=== PATIENT | female | born 1965 | race Caucasian/White ===

== ENCOUNTER 2016-12-14 15:43 | Emergency (ER) | payer OTHER ==
[~2016-12-14] VITALS: Ht 162.6 cm; Wt 113.6 kg
[~2016-12-14 15:43] MED LIST: ADVIL PM 38 MG-1 TAB PO; ADVIL200 MG PO; AMITRIPTYLINE H25 M1 PO; CLEOCIN HCL300 MG PO; FIORICET 325 MG1 TA1 PO; HUMULIN R 10100 U/ML SC; INSHUMULINR SC; INSULIN 70/3100 U/ML SC; LORTAB 5/500 501 TAB PO; MOTRIN 600600 MG/TAB PO; NOVLOG SC; SYNTHROID0.05 MG/TA PO; TYLENOL 325MG325 MG PO
[2016-12-14 15:45] VITALS: TEMP 99.1
[2016-12-14 16:54] LABS: BASO # 0.1 (0.0-0.2); BASO % 0.8 % (0.0-2.0); EOS # 0.1 (0.0-0.7); EOS % 1.3 % (0-4.0); GRAN # 6.5 (1.4-6.5); GRAN % 69.6 % (42.2-75.2); HEMATOCRIT 43.4 % (37.0-47.0); HEMOGLOBIN 15.1 g/dl (12.5-16.0); LYMPH # 1.8 (1.2-3.4); LYMPH % 19.8 % (20.0-51.0); MEAN CELL VOLUME 87 fl (80.0-100.0); MEAN CORPUSCULAR HEMOGLOBIN 30 pg (27.0-31.0); MEAN CORPUSCULAR HGB CONC 35 g/dl (33.0-37.0); MEAN PLATELET VOLUME 10.6 fl (7.4-10.4); MONO # 0.7 (0.1-0.6); MONO % 7.9 % (1.7-9.3); PLATELET COUNT 297 K/mm3 (130-400); RED BLOOD COUNT 5.01 M/mm3 (4.10-5.30); REDCELL DISTRIBUTION WIDTH-CV 12.5 % (11.5-14.5); WHITE BLOOD COUNT 9.3 K/mm3 (4.8-10.8)
[2016-12-14 17:02] LABS: ADJUSTED CALCIUM 9.4 mg/dL (8.4-10.2); ALBUMIN 3.8 gm/dL (3.5-5.0); BILIRUBIN,TOTAL 0.7 mg/dL (0.0-1.0); CALCIUM 9.2 mg/dL (8.4-10.2); CREATININE, serum 0.54 mg/dL (0.52-1.25); POTASSIUM 4.1 mmol/L (3.4-5.0); TOTAL PROTEIN 6.8 gm/dL (6.4-8.2)
[2016-12-14] MEDS ORDERED: NORCO 325 MG-51 TAB PO (18:30)
[2016-12-14 18:47] VITALS: BP 130/76; PULSE 82
== END 2016-12-14 18:49 | disposition home or self-care (01) ==
LOC: COL.ER 15:43
PROVIDERS: Family Medicine
DX: S00.93XA Contusion of unspecified part of head, initial encounter (principal); S10.93XA Contusion of unspecified part of neck, initial encounter; S30.1XXA Contusion of abdominal wall, initial encounter; S70.00XA Contusion of unspecified hip, initial encounter; E11.9 Type 2 diabetes mellitus without complications; Z79.4 Long term (current) use of insulin; V49.49XA Driver injured in collision with other motor vehicles in traffic accident, initial encounter
CPT/HCPCS: Q9967

== ENCOUNTER 2017-01-02 09:27 | Emergency (ER) | payer OTHER ==
[~2017-01-02] VITALS: Ht 162.6 cm; Wt 113.6 kg
[~2017-01-02 09:27] MED LIST changes: +NORCO 325 MG-51 TAB PO
[2017-01-02 09:32] VITALS: TEMP 98
[2017-01-02 10:41] LABS: BASO # 0.1 (0.0-0.2); BASO % 0.8 % (0.0-2.0); EOS # 0.2 (0.0-0.7); EOS % 2.6 % (0-4.0); GRAN # 4.1 (1.4-6.5); GRAN % 64.9 % (42.2-75.2); HEMOGLOBIN 14.2 g/dl (12.5-16.0); LYMPH # 1.4 (1.2-3.4); MEAN CELL VOLUME 88 fl (80.0-100.0); MEAN CORPUSCULAR HEMOGLOBIN 30 pg (27.0-31.0); MEAN CORPUSCULAR HGB CONC 35 g/dl (33.0-37.0); MEAN PLATELET VOLUME 9.9 fl (7.4-10.4); MONO # 0.6 (0.1-0.6); MONO % 9.4 % (1.7-9.3); PLATELET COUNT 269 K/mm3 (130-400); RED BLOOD COUNT 4.68 M/mm3 (4.10-5.30); REDCELL DISTRIBUTION WIDTH-CV 13.4 % (11.5-14.5); WHITE BLOOD COUNT 6.3 K/mm3 (4.8-10.8)
[2017-01-02 10:57] LABS: ADJUSTED CALCIUM 9.3 mg/dL (8.4-10.2); ALBUMIN 3.7 gm/dL (3.5-5.0); BILIRUBIN,TOTAL 0.7 mg/dL (0.0-1.0); CALCIUM 9.1 mg/dL (8.4-10.2); CREATININE, serum 0.51 mg/dL (0.52-1.25); TOTAL PROTEIN 6.6 gm/dL (6.4-8.2)
[2017-01-02 12:31] LABS: PH 5 (5-8); SQUAMOUS EPITHELIAL 0-2 /hpf; URINE APPEARANCE Clear; URINE BACTERIA None Seen /hpf; URINE BILIRUBIN Negative (NEGATIVE); URINE BLOOD 3+ (NEGATIVE); URINE COLOR Yellow; URINE GLUCOSE 3+ (NEGATIVE); URINE KETONE Trace (NEGATIVE); URINE RBC >50 /hpf; URINE UROBILINOGEN Negative (NEGATIVE); URINE WBC None Seen /hpf
[2017-01-02 12:56] VITALS: BP 161/77; PULSE 64
== END 2017-01-02 12:45 | disposition home or self-care (01) ==
LOC: COL.ER 09:27
PROVIDERS: Emergency Medicine
DX: R10.9 Unspecified abdominal pain (principal); E11.9 Type 2 diabetes mellitus without complications; I10 Essential (primary) hypertension; K59.00 Constipation, unspecified; E66.9 Obesity, unspecified; Z68.41 Body mass index [BMI] 40.0-44.9, adult
CPT/HCPCS: J1815; J2270; J2405; J7030; Q9967

== ENCOUNTER 2017-04-21 10:33 | Emergency (ER) | payer SELFPAY ==
[~2017-04-21] VITALS: Ht 162.6 cm; Wt 111.4 kg
[2017-04-21 10:43] VITALS: BP 185/84; TEMP 98.9
[2017-04-21 12:04] VITALS: PULSE 87
== END 2017-04-21 12:05 | disposition home or self-care (01) ==
LOC: COL.ER 10:33
DX: S05.02XA Injury of conjunctiva and corneal abrasion without foreign body, left eye, initial encounter (principal); E11.9 Type 2 diabetes mellitus without complications; X58.XXXA Exposure to other specified factors, initial encounter

== ENCOUNTER → 2017-05-01 | Outpatient (REF) ==
[2017-05-01 19:12] LABS: THYROID STIMULATING HORMONE 4.96 uIU/mL (0.465-4.680)
== END ==
LOC: ZLAB.WCH 18:19
PROVIDERS: General Practice
DX: Z01.89 Encounter for other specified special examinations (principal)

== ENCOUNTER 2018-03-16 12:45 | Outpatient (RCR) | payer OTHER ==
[2018-05-01] MEDS ORDERED: INSULIN (05:12)
[2018-05-01] MEDS ORDERED: ANTIVERT 25MG25 MG PO ×2 (07:35→08:30)
[2018-05-01] MEDS ORDERED: ATIVAN 0.50.5 MG/TAB PO (07:35)
[2018-05-01] MEDS ORDERED: PHENERGAN 25 TA25 MG PO ×2 (07:35→08:30)
== END 2018-05-06 | disposition home or self-care (01) ==
LOC: MKS.ESL.PT
DX: M25.512 Pain in left shoulder (principal)

== ENCOUNTER 2018-05-01 04:19 | Emergency (ER) | payer OTHER ==
[~2018-05-01] VITALS: Ht 165.1 cm; Wt 113.6 kg
[2018-05-01 04:21] VITALS: TEMP 98
[2018-05-01 05:02] LABS: BASO # 0.1 (0.0-0.2); EOS # 0.2 (0.0-0.7); EOS % 3.4 % (0-4.0); GRAN # 4.2 (1.4-6.5); GRAN % 59.6 % (42.2-75.2); HEMATOCRIT 42.4 % (37.0-47.0); HEMOGLOBIN 14.7 g/dl (12.5-16.0); LYMPH # 1.8 (1.2-3.4); LYMPH % 24.9 % (20.0-51.0); MEAN CELL VOLUME 88 fl (80.0-100.0); MEAN CORPUSCULAR HEMOGLOBIN 31 pg (27.0-31.0); MEAN CORPUSCULAR HGB CONC 35 g/dl (33.0-37.0); MEAN PLATELET VOLUME 9.7 fl (7.4-10.4); MONO # 0.7 (0.1-0.6); MONO % 10.4 % (1.7-9.3); PLATELET COUNT 309 K/mm3 (130-400); RED BLOOD COUNT 4.81 M/mm3 (4.10-5.30); REDCELL DISTRIBUTION WIDTH-CV 13.2 % (11.5-14.5)
[2018-05-01 05:07] LABS: INR 0.9 (0.8-3.0); PROTHROMBIN TIME 9.9 SECONDS (9.7-12.8)
[2018-05-01 05:11] LABS: ALANINE AMINOTRANSFERASE 38 U/L (9-52); ALBUMIN 3.9 gm/dL (3.5-5.0); ALKALINE PHOSPHATASE 121 U/L (50-136); ANION GAP 7 mmol/L (7-16); AST,SGOT 26 U/L (15-37); BILIRUBIN,TOTAL 0.6 mg/dL (0.0-1.0); BLOOD UREA NITROGEN 27 mg/dL (7-17); CARBON DIOXIDE 26 mmol/L (22-30); CHLORIDE 103 mmol/L (98-107); CREATININE, serum 0.64 mg/dL (0.52-1.25); GLUCOSE 309 mg/dL (74-106); LIPASE 54 U/L (23-300); POTASSIUM 4.2 mmol/L (3.4-5.0); SODIUM 137 mmol/L (137-145); TOTAL PROTEIN 7.2 gm/dL (6.4-8.2)
[2018-05-01] MEDS ORDERED: INSULIN (05:12)
[2018-05-01 05:30] LABS: TROPONIN-I < 0.012 ng/mL (0.000-0.034)
[2018-05-01] MEDS ORDERED: ANTIVERT 25MG25 MG PO ×2 (07:35→08:30)
[2018-05-01] MEDS ORDERED: ATIVAN 0.50.5 MG/TAB PO (07:35)
[2018-05-01] MEDS ORDERED: PHENERGAN 25 TA25 MG PO ×2 (07:35→08:30)
[2018-05-01 08:05] VITALS: BP 144/83; PULSE 79
[2018-05-01 08:16] LABS: COLLECTION METHOD CLEAN CATCH
[2018-05-01 08:23] LABS: MUCOUS Present /lpf; PH 5 (5-8); SQUAMOUS EPITHELIAL 0-2 /hpf; URINE APPEARANCE Clear; URINE BACTERIA Rare /hpf; URINE BILIRUBIN Negative (NEGATIVE); URINE BLOOD Negative (NEGATIVE); URINE COLOR Straw; URINE GLUCOSE 3+ (NEGATIVE); URINE KETONE Negative (NEGATIVE); URINE LEUKOCYTE ESTERASE Negative (NEGATIVE); URINE NITRATE Negative (NEGATIVE); URINE PROTEIN(semi-quant) 1+ (NEGATIVE); URINE RBC 0-2 /hpf; URINE UROBILINOGEN Negative (NEGATIVE)
== END 2018-05-01 08:30 | disposition home or self-care (01) ==
LOC: COL.ER 04:19
PROVIDERS: Emergency Medicine
DX: S16.1XXA Strain of muscle, fascia and tendon at neck level, initial encounter (principal); R42 Dizziness and giddiness; E11.9 Type 2 diabetes mellitus without complications; V43.52XA Car driver injured in collision with other type car in traffic accident, initial encounter
CPT/HCPCS: J2060; J2550; J7030

== ENCOUNTER 2018-08-03 16:21 | Emergency (ER) | payer OTHER ==
[~2018-08-03] VITALS: Ht 165.1 cm; Wt 115.9 kg
[~2018-08-03 16:21] MED LIST changes: +ANTIVERT 25MG25 MG PO; +ATIVAN 0.50.5 MG/TAB PO; +INSULIN; +PHENERGAN 25 TA25 MG PO
[2018-08-03 16:31] VITALS: TEMP 97.9
[2018-08-03 17:22] LABS: BASO # 0.1 (0.0-0.2); BASO % 0.7 % (0.0-2.0); EOS # 0.1 (0.0-0.7); EOS % 0.9 % (0-4.0); GRAN # 7.3 (1.4-6.5); GRAN % 75.1 % (42.2-75.2); HEMATOCRIT 47.5 % (37.0-47.0); HEMOGLOBIN 16.3 g/dl (12.5-16.0); LYMPH # 1.5 (1.2-3.4); LYMPH % 15.4 % (20.0-51.0); MEAN CELL VOLUME 90 fl (80.0-100.0); MEAN CORPUSCULAR HEMOGLOBIN 31 pg (27.0-31.0); MEAN CORPUSCULAR HGB CONC 34 g/dl (33.0-37.0); MONO # 0.7 (0.1-0.6); MONO % 7.4 % (1.7-9.3); PLATELET COUNT 345 K/mm3 (130-400); RED BLOOD COUNT 5.29 M/mm3 (4.10-5.30); REDCELL DISTRIBUTION WIDTH-CV 13.1 % (11.5-14.5)
[2018-08-03 17:35] LABS: BILIRUBIN,TOTAL 0.4 mg/dL (0.0-1.0); CALCIUM 9.5 mg/dL (8.4-10.2); CREATININE, serum 0.75 mg/dL (0.52-1.25); POTASSIUM 4.9 mmol/L (3.4-5.0); TOTAL PROTEIN 7.4 gm/dL (6.4-8.2)
[2018-08-03] MEDS ORDERED: NOVOLIN R100 U/ML SQ (20:00)
[2018-08-03] MEDS ORDERED: NOVOLIN N100 U/ML SQ (20:01)
[2018-08-03] MEDS ORDERED: PEPCID 20MG TAB20 MG PO (20:08)
[2018-08-03 20:22] VITALS: BP 170/79; PULSE 81
--- NOTE | 2018-08-04 14:18 | NUR ---
telecommunications linesworker left a phone message for patient call back regarding assistance with financial concerns.
--- NOTE | 2018-08-04 16:05 | NUR ---
metal storage worker contacted patient and provided disability resource, hospital financial counselor resource and information on the [facility]. Patient stated she slept last night for the first time in a long while.
== END 2018-08-03 20:20 | disposition home or self-care (01) ==
LOC: COL.ER 16:21
PROVIDERS: Emergency Medicine
DX: E11.9 Type 2 diabetes mellitus without complications (principal); E03.9 Hypothyroidism, unspecified; K29.70 Gastritis, unspecified, without bleeding; R10.9 Unspecified abdominal pain; G89.29 Other chronic pain; Z98.890 Other specified postprocedural states; Z79.4 Long term (current) use of insulin
CPT/HCPCS: J1815

== ENCOUNTER → 2019-04-01 | Outpatient (CLI) | payer SELFPAY ==
[~2019-04-01] MED LIST changes: +NOVOLIN N100 U/ML SQ; +NOVOLIN R100 U/ML SQ; +PEPCID 20MG TAB20 MG PO
[2019-04-01 18:20] LABS: BASO # 0.1 (0.0-0.2); BASO % 0.8 % (0.0-2.0); EOS # 0.2 (0.0-0.7); EOS % 2.2 % (0-4.0); GRAN % 69.2 % (42.2-75.2); HEMATOCRIT 43.1 % (37.0-47.0); HEMOGLOBIN 14.7 g/dl (12.5-16.0); LYMPH # 1.6 (1.2-3.4); MEAN CELL VOLUME 89 fl (80.0-100.0); MEAN CORPUSCULAR HEMOGLOBIN 30 pg (27.0-31.0); MEAN CORPUSCULAR HGB CONC 34 g/dl (33.0-37.0); MONO # 0.7 (0.1-0.6); MONO % 8.6 % (1.7-9.3); PLATELET COUNT 360 K/mm3 (130-400); RED BLOOD COUNT 4.84 M/mm3 (4.10-5.30); REDCELL DISTRIBUTION WIDTH-CV 12.8 % (11.5-14.5)
[2019-04-01 18:32] LABS: ALBUMIN 3.9 gm/dL (3.5-5.0); BILIRUBIN,TOTAL 0.4 mg/dL (0.0-1.0); CALCIUM 9.5 mg/dL (8.4-10.2); CREATININE, serum 1.6 (0.52-1.25); POTASSIUM 4.2 mmol/L (3.4-5.0)
== END ==
LOC: ZCOL.LAB 17:45
PROVIDERS: Family Medicine
DX: R19.7 Diarrhea, unspecified (principal)

== ENCOUNTER → 2019-04-02 | Outpatient (CLI) | payer SELFPAY ==
[~2019-04-02] VITALS: Ht 165.1 cm; Wt 120.9 kg
[2019-04-02 11:57] VITALS: BP 179/99; PULSE 72; TEMP 09
[2019-04-02 13:30] VITALS: BP 183/94; PULSE 71
[2019-04-02 14:30] VITALS: BP 186/95; PULSE 67
[2019-04-02 15:45] VITALS: BP 191/100; PULSE 68
--- NOTE | 2019-04-02 15:51 | NUR ---
Car Sales Consultant met with the patient following a referral for director of social media marketing. Patient states she lives in [place] alone and recently lost her mother. Patient reports no other supports locally as she does not have a good relationship with her sister or her aunt and uncle. Patient has primary care services through [facility]. Patient reports independence with ADLS although she walks with a walking stick. Patient reports she does not have insurance as she was fired from her job yesterday. Financial Counselor, Shalom was consulted. Patient does not have Advance Directives as she does not know who she would want to appoint as DPOA-HC. Patient was interested in taking home the DPOA-HC form. SW provided. Patient states she is interested in mental health services. SW provided local resource guide and reviewed section that lists [facility]. SUN highlighted after hours emergency number. Patient states she does not feel suicidal. No additional concerns at this time.
--- NOTE | 2019-04-02 16:01 | NUR ---
infusion of fluids and flagyl complete, BMP has been drawn. plan to wait for results and call Dr. Jerez prior to her discharge. pt has been unable to provide stool specimen, she does have a collection kit at home. Also, pt was visited by long term care social worker and case management. Per Ximena long term care social worker, pt did receive mental health resources, but did not want to make an appt at this time.
[2019-04-02 16:13] LABS: CALCIUM 8.6 mg/dL (8.4-10.2); CREATININE, serum 0.65 (0.52-1.25); POTASSIUM 3.4 mmol/L (3.4-5.0)
== END ==
LOC: EUO 10:18
PROVIDERS: Family Medicine
DX: E86.0 Dehydration (principal); R19.7 Diarrhea, unspecified
CPT/HCPCS: J7030

== ENCOUNTER 2019-07-13 03:03 | Inpatient (IN) | payer OTHER ==
[~2019-07-13] VITALS: Ht 165.2 cm; Wt 129.5 kg
[2019-07-13 03:32] LABS: BASO # 0.1 (0.0-0.2); BASO % 1.5 % (0.0-2.0); EOS # 0.3 (0.0-0.7); EOS % 5.5 % (0-4.0); GRAN % 64.3 % (42.2-75.2); HEMATOCRIT 39.3 % (37.0-47.0); HEMOGLOBIN 12.8 g/dl (12.5-16.0); LYMPH # 1.2 (1.2-3.4); LYMPH % 18.9 % (20.0-51.0); MEAN CELL VOLUME 91 fl (80.0-100.0); MEAN CORPUSCULAR HEMOGLOBIN 30 pg (27.0-31.0); MEAN CORPUSCULAR HGB CONC 33 g/dl (33.0-37.0); MONO # 0.6 (0.1-0.6); MONO % 9.3 % (1.7-9.3); PLATELET COUNT 356 K/mm3 (130-400); RED BLOOD COUNT 4.31 M/mm3 (4.10-5.30); REDCELL DISTRIBUTION WIDTH-CV 13.5 % (11.5-14.5)
[2019-07-13 03:41] LABS: ALBUMIN 3.9 gm/dL (3.5-5.0); BILIRUBIN,TOTAL 0.6 mg/dL (0.0-1.0); CALCIUM 8.9 mg/dL (8.4-10.2); CREATININE, serum 1.18 (0.52-1.25); POTASSIUM 4.3 mmol/L (3.4-5.0); TOTAL PROTEIN 7.2 gm/dL (6.4-8.2)
[2019-07-13 03:54] LABS: TROPONIN-I 0.185 ng/mL (0.000-0.035)
[2019-07-13] MEDS ORDERED: ALPHAGAN OPHTH D5 ML OU (04:05)
--- NOTE | 2019-07-13 05:10 | NUR ---
received report from MICHAEL Harris.
[2019-07-13 05:26] VITALS: BP 150/85; PULSE 76; TEMP 97.7
[2019-07-13 06:23] LABS: INR 0.9 (0.8-3.0); PROTHROMBIN TIME 10.6 SECONDS (9.7-12.8)
[2019-07-13 06:26] LABS: PARTIAL THROMBOPLASTIN TIME 32.1 SECONDS (26.0-37.0)
[2019-07-13] MEDS ORDERED: LUCENTIS0.5 MG/0.0 (06:40)
[2019-07-13 06:48] LABS: C-REACTIVE PROTEIN 1.1 mg/dL (0.0-0.9); MAGNESIUM 1.9 mg/dL (1.6-2.3)
[2019-07-13 06:57] LABS: COLLECTION METHOD CLEAN CATCH
[2019-07-13 07:06] LABS: PH 6 (5-8); SQUAMOUS EPITHELIAL None Seen /hpf; URINE APPEARANCE Clear; URINE BACTERIA None Seen /hpf; URINE BILIRUBIN Negative (NEGATIVE); URINE BLOOD Negative (NEGATIVE); URINE COLOR Colorless; URINE GLUCOSE Negative (NEGATIVE); URINE KETONE Negative (NEGATIVE); URINE LEUKOCYTE ESTERASE Negative (NEGATIVE); URINE NITRATE Negative (NEGATIVE); URINE PROTEIN(semi-quant) Negative (NEGATIVE); URINE RBC 0-2 /hpf; URINE UROBILINOGEN Negative (NEGATIVE)
--- NOTE | 2019-07-13 07:13 | NUR ---
0525 - PT ARRIVE IN UNIT, WAS ABLE TO TRANSFER SELF AND WALK TO BATHROOM WITH CANE. PT ALERT AND ORIENTED X 4, ON ROOM AIR. PT ON NITRO DRIP AND HEPARIN DRIP UPON ARRIVAL.
[2019-07-13 07:16] LABS: THYROID STIMULATING HORMONE 15.2 uIU/mL (0.465-4.680)
--- NOTE | 2019-07-13 07:30 | NUR ---
ECHO BEING PERFORMED AT THIS TIME. DR FRAIRET IN TO ASSESS PATIENT
[2019-07-13 10:33] VITALS: BP 109/76; PULSE 85
--- NOTE | 2019-07-13 10:40 | NUR ---
CALLED DR CORDERO TO MAKE HIM AWARE OF MOST RECENT TROPONIN AND TO VERIFY THAT PROVIDER WANTED PATIENT TO HAVE LEXISCAN TODAY.
[2019-07-13 12:00] VITALS: BP 125/58; PULSE 69; TEMP 97.6
--- NOTE | 2019-07-13 13:19 | NUR ---
PT HAD SOME CONCERNS RELATING TO HER MED LUCENTIS WHICH SHE TAKES FOR RETINOPATHY, SHE THOUGHT THE MAXIMO MIGHT CAUSE HER EYE TO BLEED. LEFT [facility] FOR DR CORDERO.
--- NOTE | 2019-07-13 13:32 | NUR ---
DR HINKLE STATES THERE SHOULD BE NO PROBLEM BETWEEN HER MEDS AND THE MAXIMO
[2019-07-13 16:00] VITALS: BP 141/70; PULSE 78; TEMP 97.6
[2019-07-13 16:52] VITALS: BP 159/81; PULSE 73
--- NOTE | 2019-07-13 16:53 | NUR ---
Bottoming Machine Operator met with patient to complete initial intake. Patient lives alone just outside of [place]. Patient does not currently have primary care but reports the last PCP she saw was Dr. Jerez at the [facility]. Patient obtains needed medications from [facility]. Patient was interested in setting up DPOA-. Patient filled out form then SUN and SUN Walker provided witness signature. Patient was provided with original and copies. Copy was placed on patient's chart. SW to continue to follow.
[2019-07-13 20:00] VITALS: BP 145/76; PULSE 75; TEMP 98.3
--- NOTE | 2019-07-13 21:00 | NUR ---
At this time I was in the patients room to administer to her the 9pm medications she had scheduled. I went on and starting naming the medications I had for her before I scanned them. She was unaware that the doctors had started her on a few of them, specifically docusate sodium, pepcid and atoravastatin. I apologized that she was uninformed and as I was standing right there I told her I would look to see if they had mentioned anything specific in their notes as to why they wanted her on these medications. I then started to educate her on each medication. She seemed very upset and frustrated that the doctors hadnt informed her about these medications before before they even prescribed them. After I tried my best to explain what each medication is for she said she didnt feel comfortable taking them and I told her that it was okay to refuse. I did preceed to advocate for her to take the statin due to her being in here for an NSTEMI but she seemed to keep getting more frustrated and started being rude to me. She preceded to tell me a bunch of stories about how doctors in the past have prescribed her medications that were not necessary and made her conditions worse apparently. SHe started to get very defensive. I told her that I unfortunately could not find a specific reason as to why the statin was prescribed but that it is sometimes prescribed as a prophylactic mediaction and asked her if she knew what that was, she said she did so I asked her what does it mean. She then got even more defensive and rude. I told her that it may have been prescibed to prevent high cholesterol or plaque build up in her arteries to prevent heart attacks or chest pain. She told me in an aggressive and defensive manner that "that is not a good enough reason, to start me on medication for no reason just to prevent something I dont have". I told the patient that I could have the doctor come in and talk to her and for now we will hold off on the medications. She then told me that she does not appreciate my attitude and that she will just get up and leave this place. I told her I did not have an attitude and I was trying to educate as best as I could and she said she was not going to continue to argue with me. I apologized and told her I would call the doctor. She mentioned before I walked out that she checked her own BS and it was in the 230s and she needs insulin. I told her that her next BS check wasnt intil midnight so I would need to call the doctor to treat it now. She said "well I will just use my own insilin then", again in a rude and agressive manner. I, as the nurse, did not argue back with her nor did I ever raise my voice at her or think that I argued about anything. If she considers an argument as me trying to explain something to her and her not liking my explanation then I can not truly help that. I kepy my opinions to myself, as I am being attacked verbally and I did not defend myself at all. Instead I apologized and told her I would call the doctor.
--- NOTE | 2019-07-13 21:30 | NUR ---
Talked to who was currently on the floor about the patients concerns with the medications and refusing to take them. He said he would go and talk to her. I also mentioned if we could change her accu checks to ACHS because the patient has been checking her own BS whenever she wants and demands to be treated for them. He said ACHS is fine. then went and talked to the patient.
--- NOTE | 2019-07-13 22:00 | NUR ---
went back into the patients room to take her BS and as I was about to do so she stopped me and said that she just needed to say something. She preceded on to tell me that I should not get so defensive next time and not have an attitude and that I made her stress worse now. I apologized and that was it.
[2019-07-14] VITALS (149 sets, daily range): BP systolic 85–144; BP diastolic 46–83; PULSE 71–85; TEMP 97.9–98.3; O2SAT 86–97
[2019-07-14 05:03] LABS: BASO # 0.1 (0.0-0.2); BASO % 1.2 % (0.0-2.0); EOS # 0.4 (0.0-0.7); EOS % 5.8 % (0-4.0); GRAN # 3.3 (1.4-6.5); GRAN % 55.5 % (42.2-75.2); HEMOGLOBIN 11.9 g/dl (12.5-16.0); LYMPH # 1.6 (1.2-3.4); LYMPH % 26.7 % (20.0-51.0); MEAN CELL VOLUME 89 fl (80.0-100.0); MEAN CORPUSCULAR HEMOGLOBIN 30 pg (27.0-31.0); MEAN CORPUSCULAR HGB CONC 34 g/dl (33.0-37.0); MEAN PLATELET VOLUME 9.9 fl (7.4-10.4); MONO # 0.6 (0.1-0.6); MONO % 10.3 % (1.7-9.3); PLATELET COUNT 321 K/mm3 (130-400); RED BLOOD COUNT 3.96 M/mm3 (4.10-5.30); REDCELL DISTRIBUTION WIDTH-CV 13.4 % (11.5-14.5)
[2019-07-14 05:05] LABS: HEMATOCRIT 35.2 % (37.0-47.0)
[2019-07-14 05:23] LABS: CALCIUM 8.5 mg/dL (8.4-10.2); CHOLESTEROL RISK RATIO 3.5; CREATININE, serum 0.77 (0.52-1.25); POTASSIUM 3.9 mmol/L (3.4-5.0)
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
--- NOTE | 2019-07-14 08:00 | NUR ---
Shift assessment complete at this time. Plan of care reviewed at bedside with patient. Additional time taken to address any other other needs or concerns at this time. Pt reports mild epigastric pain at 3/10 and denies need for intervention at this time. Vitals stables at this time. Bed in low position, call light within reach. Will continue to monitor.
[2019-07-14] MEDS ORDERED: ZOCOR 40MG40 MG PO (14:08)
[2019-07-14] MEDS ORDERED: ASPIRIN E.C. 8181 MG PO (14:09)
[2019-07-14] MEDS ORDERED: NITROSTAT0.3 MG SL (14:11)
[2019-07-14] MEDS ORDERED: PLAVIX 75MG TAB75 MG PO (14:12)
--- NOTE | 2019-07-14 15:00 | NUR ---
The patient left AMA, this day.
--- NOTE | 2019-07-14 15:40 | NUR ---
Pt discharged at this time AMA to home. After extensive discussion with patient, Dr. Christianson, and Dr. Ceballos. Plan to have patient schedule for outpatient heart cath next week with Dr. Christianson. Pt instructed to report to the ED however if she begins to experience severe chest pain or shortness of breath prior to scheduled cath date. Discharge education provided to patient and plan of care reviewed prior to discharge. time taken to address any additional questions or concerns.
[2019-07-14] MEDS ORDERED: CLEOCIN HCL300 MG PO (20:34)
== END 2019-07-14 15:40 | disposition left against medical advice (07) | DRG 282 ==
LOC: COL.ER 03:03 → IMCU 04:15
PROVIDERS: Emergency Medicine; Nurse Practitioner Family; ADMIT Hospitalist
DX: I21.4 Non-ST elevation (NSTEMI) myocardial infarction (principal); E66.9 Obesity, unspecified; E03.9 Hypothyroidism, unspecified; F32.9 Major depressive disorder, single episode, unspecified; M19.90 Unspecified osteoarthritis, unspecified site; I50.9 Heart failure, unspecified; J06.9 Acute upper respiratory infection, unspecified; Z79.4 Long term (current) use of insulin
CPT/HCPCS: 99223-AI; 99239; A9500; J1644; J1815; J1940; J2270; J2785

== ENCOUNTER 2019-07-14 20:02 | Inpatient (IN) | payer OTHER ==
[~2019-07-14] VITALS: Ht 165.1 cm; Wt 122.0 kg
[~2019-07-14 20:02] MED LIST changes: +ALPHAGAN OPHTH D5 ML OU; +ASPIRIN E.C. 8181 MG PO; +LUCENTIS0.5 MG/0.0; +NITROSTAT0.3 MG SL; +PLAVIX 75MG TAB75 MG PO; +ZOCOR 40MG40 MG PO
[2019-07-14] MEDS ORDERED: CLEOCIN HCL300 MG PO (20:34)
[2019-07-14 20:46] LABS: BASO # 0.1 (0.0-0.2); BASO % 1.1 % (0.0-2.0); EOS # 0.4 (0.0-0.7); EOS % 4.8 % (0-4.0); GRAN % 67.8 % (42.2-75.2); HEMATOCRIT 41.7 % (37.0-47.0); HEMOGLOBIN 13.4 g/dl (12.5-16.0); LYMPH # 1.2 (1.2-3.4); MEAN CELL VOLUME 93 fl (80.0-100.0); MEAN CORPUSCULAR HEMOGLOBIN 30 pg (27.0-31.0); MEAN CORPUSCULAR HGB CONC 32 g/dl (33.0-37.0); MEAN PLATELET VOLUME 10.3 fl (7.4-10.4); MONO # 0.7 (0.1-0.6); PLATELET COUNT 372 K/mm3 (130-400); RED BLOOD COUNT 4.47 M/mm3 (4.10-5.30); REDCELL DISTRIBUTION WIDTH-CV 13.7 % (11.5-14.5)
[2019-07-14 20:50] LABS: PROTHROMBIN TIME 11.1 SECONDS (9.7-12.8)
[2019-07-14 20:52] LABS: PARTIAL THROMBOPLASTIN TIME 32.1 SECONDS (26.0-37.0)
[2019-07-14 20:56] LABS: BILIRUBIN,TOTAL 0.5 mg/dL (0.0-1.0); CALCIUM 9.1 mg/dL (8.4-10.2); CREATININE, serum 0.88 (0.52-1.25); POTASSIUM 3.8 mmol/L (3.4-5.0); TOTAL PROTEIN 7.3 gm/dL (6.4-8.2)
[2019-07-14 21:12] LABS: TROPONIN-I 0.123 ng/mL (0.000-0.035)
[2019-07-15 00:52] VITALS: BP 121/57; PULSE 68; TEMP 97.6
--- NOTE | 2019-07-15 01:20 | NUR ---
Pt arrived to unit around 0100, Alert and oriented with VSS. Here with c/o chest pain and SOB, worsening with exertion. Denies chest pain and SOB at this moment. On tele. On hep gtt at 10ml/hr, IV to right wrist. Was admitted a few days ago, and left AMA today due to issues at home. Returned due to increasing sob. troponins trending down. ambulatory and ind in room. encouraged bedrest. BLE edema. encouraged to elevate feet. denies needs at this time, call light within reach, will continue to monitor
--- NOTE | 2019-07-15 01:29 | NUR ---
Pt does have nitro paste to 0.5in to l side of chest
[2019-07-15 01:45] LABS: TROPONIN-I 3 HR POST INITIAL 0.133 ng/mL (0.000-0.034)
--- NOTE | 2019-07-15 01:50 | NUR ---
DR JOHNSON NOTIFIED OF TROPONIN LEVEL
[2019-07-15 04:35] LABS: BASO # 0.1 (0.0-0.2); BASO % 1.1 % (0.0-2.0); EOS # 0.4 (0.0-0.7); EOS % 6.2 % (0-4.0); GRAN % 57.1 % (42.2-75.2); HEMOGLOBIN 11.9 g/dl (12.5-16.0); LYMPH # 1.6 (1.2-3.4); LYMPH % 23.5 % (20.0-51.0); MEAN CELL VOLUME 91 fl (80.0-100.0); MEAN CORPUSCULAR HEMOGLOBIN 30 pg (27.0-31.0); MEAN CORPUSCULAR HGB CONC 33 g/dl (33.0-37.0); MONO # 0.8 (0.1-0.6); MONO % 11.7 % (1.7-9.3); PLATELET COUNT 339 K/mm3 (130-400); RED BLOOD COUNT 3.97 M/mm3 (4.10-5.30); REDCELL DISTRIBUTION WIDTH-CV 13.7 % (11.5-14.5)
[2019-07-15 04:37] LABS: HEMATOCRIT 36.1 % (37.0-47.0)
[2019-07-15 04:44] LABS: CALCIUM 8.8 mg/dL (8.4-10.2); CREATININE, serum 0.76 (0.52-1.25); POTASSIUM 3.9 mmol/L (3.4-5.0)
[2019-07-15 05:00] LABS: TROPONIN-I 0.126 ng/mL (0.000-0.035)
--- NOTE | 2019-07-15 06:21 | NUR ---
pt is sleeping in bed, call light within reach, will continue to monitor
[2019-07-15 08:41] VITALS: BP 131/86; PULSE 85; TEMP 98.1
--- NOTE | 2019-07-15 10:09 | NUR ---
Initial visit; Patient thanked Tmr Teacher for looking in on her and offering God's blessings.
[2019-07-15 10:29] LABS: PARTIAL THROMBOPLASTIN TIME 50.8 SECONDS (26.0-37.0)
--- NOTE | 2019-07-15 10:58 | NUR ---
Pt has [facility] nursing staff development coordinator caring for patient this morning. Pt is A&O, independent in room. Denies pain, states just some "discomfort". Cardio consult, pt will have heart cath 07/16. Consent signed and on chart. Pt has Hep gtt running to RW IV w/o complications at 11.5 ml/hr, increased from 10 ml/hr after Hep Xa draw. Pt is on room air, breathing is even and unlabored. Pt denies other needs at this time. Call light w/in reach, requesting lights off and door shut for time being.
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
[2019-07-15 12:05] VITALS: BP 135/97; PULSE 73; TEMP 98.1
--- NOTE | 2019-07-15 13:09 | NUR ---
Pt requesting to shower, informed pt about not being able to stop Hep gtt. Pt insisted on shower, informed staff she "would be noncompliant and is going to shower regardless". Pt refused bed bath. Pt stated she would "hold her hand out the shower". Pt has RW IV, wrapped w/ glove. Pt instructed to not get hand/arm and IV site wet.
--- NOTE | 2019-07-15 13:44 | NUR ---
Patient sleeping in bed upon arrival. A&0x4 when woke up. Assessment and VS complete with no adnormal findings. Resting in bed most of the day with trips up to the bathroom. Visited with speech pathologist this morning but no other visitors. In bed as of 1345. No further needs at this time. Reported off to MICHAEL Valdivia.
[2019-07-15 15:14] VITALS: BP 131/70; PULSE 73; TEMP 98
--- NOTE | 2019-07-15 15:15 | NUR ---
Pt had blood sugar checked prior to lunch, 240, received 6 units from community health nursing director per sliding scale. Pt had lunch, asked for BS to be rechecked, she "felt high". BS rechecked at 1330, resulted at 271, pt requesting more insulin. Discussed with MARIE Booker. One time dose 8 units per sliding scale for BS of 271 ordered. Pt BS rechecked prior to admin, 225. 8 units Novolog administered. Pt sleeping prior to dinner. Lab in to draw hep xa lab. This nurse was going to recheck BS. Pt upset that food had been delivered but pt had not eaten yet and BS had not been checked. Informed pt we could check BS and give insulin prior to eating. Pt became upset because she has had to explain "how she needs her BS checked prior to eating and then be given enough to cover what she is going to eat". Tried to explain the sliding scale that we have the pt on. Pt became very frustrated and started yelling. lathing supervisor contacted to talk to pt. Pt loud and upset w/ supervisor small appliance assembly. Pt "no longer wants to explain this". Pt informed staff she "will do what she needs to do". Pt allowed for BS to be rechecked, resulted at 230, from 225 at 1500 after receiving 8 units Novolog. Pt stated she wasn't going to eat, didn't want her dinner warmed up. During shift change/report, pt had eaten dinner. Pt apologized for yelling and becoming frustrated earlier and discussed POC. Asked pt if she would like for her BS to be checked and then she can tell us what she would take at home. Pt agreed that would work but "she will do what she needs to regardless". BS rechecked by manager shift BAKER BREAD. BS now 177. second shift supervisor nurse Sharron aware and has now taken over cares. Pt states she didn't take her own insulin.
--- NOTE | 2019-07-15 19:30 | NUR ---
Report received. Assumed care for night shift supervisor. A&Ox3. Assessment complete. VS stable. Still upset about insulin/blood sugars/care. States she just wants to be heard and udnerstood. Did come to a plan of care for this shift. Staes she wants her blood sugar checked now and insulin given. Current glucose 177. Discussed sliding scale ordered-4 units-states she is comfortable with that dose. Will recheck glucose at 2100 and dose accordingly. States she does not want to be bothered all night and is refusing midnight vitals. Did discuss that lab draw is due at midnight so someone will be here to do the draw. Verbalizes understanding. Heparin infusing at 11.5mls/hr to right wrist. Discussed NPO after midnight for procedure. Denies questions or concerns. States she just wants to calm down and be left alone. Encouraged to call for questions/concerns. Verbalizes understanding. Will monitor.
[2019-07-15 19:37] VITALS: BP 131/69; BP 135/59; PULSE 101; PULSE 72; TEMP 97.9; TEMP 98.3
--- NOTE | 2019-07-15 21:25 | NUR ---
Bedside glucose checked per patient request-165. States she is happy with that number because she will be NPO after midnight. States she does not want to be bothered the rest of the night. Reminded that there will be a blood draw at 0000 for heparin dosing. Verbalizes understanding. Will monitor.
[2019-07-16] VITALS (559 sets, daily range): BP systolic 95–162; BP diastolic 50–100; PULSE 70–81; TEMP 98.1–98.8; O2SAT 86–100
--- NOTE | 2019-07-16 00:50 | NUR ---
Lab to room to draw heparin XA. Antibiotics given with small sip of water. Reminded of NPO status due to AM procedure. Verbalizes understanding. Currently has IV to right hand-discussed need to place IV in left extremity for procedure. Refusing IV start at this time. States "Im not doing that right now, maybe later, but not right now." Denies pain/shortness of breath/nausea. Will monitor.
--- NOTE | 2019-07-16 01:30 | NUR ---
Heparin XA 0.35. No change to heparin drip rate.
--- NOTE | 2019-07-16 04:38 | NUR ---
Rested off and on this shift. Did refuse vitals at 0000 and voiced her unhappiness with being woke up at 0400 for vitals. Discussed need for IV start again but refused to allow this nurse to complete. States she was told that her heart cath would be after ten-"allow me to sleep." Noted that 1/2NS@100mls/hour is to start at 0600-still refusing. Has denies chest pain/shortness of breath/nasuea. Voiding without difficulty. Denies needs. Will monitor.
[2019-07-16 07:09] LABS: BASO # 0.1 (0.0-0.2); BASO % 1.3 % (0.0-2.0); EOS # 0.4 (0.0-0.7); EOS % 5.6 % (0-4.0); GRAN # 3.8 (1.4-6.5); GRAN % 56.3 % (42.2-75.2); HEMATOCRIT 38.8 % (37.0-47.0); HEMOGLOBIN 12.8 g/dl (12.5-16.0); LYMPH # 1.8 (1.2-3.4); LYMPH % 25.8 % (20.0-51.0); MEAN CELL VOLUME 91 fl (80.0-100.0); MEAN CORPUSCULAR HEMOGLOBIN 30 pg (27.0-31.0); MEAN CORPUSCULAR HGB CONC 33 g/dl (33.0-37.0); MEAN PLATELET VOLUME 9.8 fl (7.4-10.4); MONO # 0.7 (0.1-0.6); MONO % 10.6 % (1.7-9.3); PLATELET COUNT 333 K/mm3 (130-400); RED BLOOD COUNT 4.28 M/mm3 (4.10-5.30); REDCELL DISTRIBUTION WIDTH-CV 13.7 % (11.5-14.5)
[2019-07-16 07:19] LABS: CALCIUM 9.1 mg/dL (8.4-10.2); CREATININE, serum 0.7 (0.52-1.25); POTASSIUM 4.1 mmol/L (3.4-5.0)
--- NOTE | 2019-07-16 09:01 | NUR ---
SEE MERGE DOCUMENTATION FOR MEDICATION ADMINISTRATION TIMES AND INTRA/POST PROCEDURE SEDATION ASSESSMENTS. PLAN FOR RIGHT RADIAL ACCESS, POSITIVE BARBEAU TEST. RIGHT WRIST AND RIGHT GROIN PREPPED.
--- NOTE | 2019-07-16 10:45 | NUR ---
PT ARRIVED FROM [facility]UM[facility] RELATIONS OFFICER. PT IS AXOX4. PT'S VSS. PT HAS RIGHT RADIAL SITE WITH TR BAND WITH 14ML OF AIR. PT RE-EDUCATED TO KEEP WRIST STRAIGHT AND NOT TO USE RIGHT ARM.
--- NOTE | 2019-07-16 10:46 | NUR ---
Patient down to IMCU, Reported off to IMCU RN
--- NOTE | 2019-07-16 16:30 | NUR ---
TR BAND REMOVED. SITE CLEAN, DRY AND INTACT. BANDAID PLACED OVER PUNCTURE SITE.
[2019-07-17] VITALS (754 sets, daily range): BP systolic 103–149; BP diastolic 47–93; PULSE 72–80; TEMP 98.2–99; O2SAT 87–99
[2019-07-17 03:24] LABS: BASO # 0.1 (0.0-0.2); BASO % 1.1 % (0.0-2.0); EOS # 0.3 (0.0-0.7); EOS % 4.3 % (0-4.0); GRAN # 4.6 (1.4-6.5); HEMOGLOBIN 11.8 g/dl (12.5-16.0); LYMPH # 1.4 (1.2-3.4); LYMPH % 19.4 % (20.0-51.0); MEAN CELL VOLUME 91 fl (80.0-100.0); MEAN CORPUSCULAR HEMOGLOBIN 30 pg (27.0-31.0); MEAN CORPUSCULAR HGB CONC 33 g/dl (33.0-37.0); MONO # 0.8 (0.1-0.6); MONO % 10.6 % (1.7-9.3); PLATELET COUNT 317 K/mm3 (130-400); REDCELL DISTRIBUTION WIDTH-CV 13.5 % (11.5-14.5)
[2019-07-17 03:29] LABS: HEMATOCRIT 36.2 % (37.0-47.0)
[2019-07-17 03:32] LABS: CALCIUM 8.8 mg/dL (8.4-10.2); CREATININE, serum 0.75 (0.52-1.25)
[2019-07-17 03:58] LABS: POTASSIUM 3.9 mmol/L (3.4-5.0)
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
--- NOTE | 2019-07-17 15:26 | NUR ---
HANDOFF REPORT GIVEN TO MICHAEL VYAS PT WILL BE TX'ED TO 349
--- NOTE | 2019-07-17 15:26 | NUR ---
ALBA received a call in regards to patients discharge(nurse or PA). SW was informed that patient had expressed concern about needing possible transportation home if discharged today, and assistance with medication. SW did mentioned that patient could be provided with a medication voucher, transport voucher, and that she would be informed of her upcoming appointnet. SW indicated that she would go visit patient to discuss concerns, however when patient went to the patients room she was asleep. ALBA did speak to a SENIOR TRAINING AND DEVELOPMENT REP that informed her that the patients nurse had gone upstairs. ALBA got patients nurses information and tried to call the nurse, however no one answered the phone, and so SW left a message with ICU front office supervisor for the nurse to call. ALBA did complete a med voucher and transportation voucher for patient if needed, and informed previous person she spoke to about what would be needed for the Med voucher. Alba will follow up
--- NOTE | 2019-07-17 17:57 | NUR ---
Patient sitting up in bed, dinner on the bedside table. Reports back pain, did not request pain medication. VSS reported SOB with exertion. IV CDI. No further needs expressed from patient. Call light within reach
--- NOTE | 2019-07-17 20:00 | NUR ---
Report received. Assumed care for slot shift manager. Assessment complete. VS stable. A&Ox3. Denies nausea/shortness of breath/chest pain. States she is having pain in her left hip-described as constant ache-rated 4/10 on pain scale. Voiding without difficulty. Tolerating PO. Denies questions or concerns. Refusing 0000 vitals. States she does not want to be bothered. Encouraged to call for questions/concerns. Call light in reach. will monitor.
--- NOTE | 2019-07-18 | NUR ---
Refused midnight vital signs
--- NOTE | 2019-07-18 04:00 | NUR ---
Refused 0400 vital signs.
--- NOTE | 2019-07-18 05:56 | NUR ---
Rested well this shift. Did refuse 0000/0400 vital signs. Had some hip pain earlier in the shift that was treated with 1000mg tylenol. Denies nausea/shortness of breath/chest pain. Call light in reach. Will monitor.
[2019-07-18 07:21] VITALS: BP 134/67; PULSE 69; TEMP 98.3
--- NOTE | 2019-07-18 09:31 | NUR ---
Patient had breakfast tolerated without nausea. Patient now up in the shower. She was odorous, we discussed importance of hygiene. Int covered. She is hopeful for discharge today.
[2019-07-18 10:57] LABS: BASO # 0.1 (0.0-0.2); BASO % 1.1 % (0.0-2.0); EOS # 0.4 (0.0-0.7); EOS % 5.6 % (0-4.0); GRAN # 4.2 (1.4-6.5); GRAN % 63.8 % (42.2-75.2); HEMATOCRIT 37.3 % (37.0-47.0); HEMOGLOBIN 12.6 g/dl (12.5-16.0); LYMPH # 1.1 (1.2-3.4); LYMPH % 17.3 % (20.0-51.0); MEAN CELL VOLUME 89 fl (80.0-100.0); MEAN CORPUSCULAR HEMOGLOBIN 30 pg (27.0-31.0); MEAN CORPUSCULAR HGB CONC 34 g/dl (33.0-37.0); MEAN PLATELET VOLUME 10.2 fl (7.4-10.4); MONO # 0.8 (0.1-0.6); MONO % 11.7 % (1.7-9.3); PLATELET COUNT 308 K/mm3 (130-400); RED BLOOD COUNT 4.17 M/mm3 (4.10-5.30); REDCELL DISTRIBUTION WIDTH-CV 13.6 % (11.5-14.5)
[2019-07-18 11:20] LABS: CALCIUM 8.8 mg/dL (8.4-10.2); CREATININE, serum 0.81 (0.52-1.25); POTASSIUM 4.1 mmol/L (3.4-5.0)
[2019-07-18 11:39] VITALS: BP 129/57; PULSE 68; TEMP 98.7
[2019-07-18] MEDS ORDERED: TOPROL XL 25MG25 MG PO (13:23)
[2019-07-18] MEDS ORDERED: LIPITOR 80MG80 MG PO (13:23)
[2019-07-18] MEDS ORDERED: LASIX 20MG TABL20 MG PO (13:24)
[2019-07-18] MEDS ORDERED: SYNTHROID0.2 MG/TAB PO (13:24)
[2019-07-18] MEDS ORDERED: ZESTRIL 20MG TA20 MG PO (13:25)
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
--- NOTE | 2019-07-18 15:57 | NUR ---
Patient given all discharge teaching, we discussed all new 7 scripts. Scripts were called into [facility] who is aware patient will have hospital voucher. I reviewed with patient all medications and there importance. Int Dc. Tele off. We reviewed heart healthy diabetic diet. I reviewed importance of making follow up with cardiology in 2 weeks & PCP is already scheduled. Patient ride here. Patient wheeleed out with all belongings & she denies questions or concerns.
== END 2019-07-18 16:07 | disposition home or self-care (01) | DRG 248 ==
LOC: COL.ER 20:02 → SURG 21:51 → IMCU 07-16 10:40 → SURG 07-16 10:42
PROVIDERS: Emergency Medicine; Nurse Practitioner; Nurse Practitioner Family; Student in an Organized Health Care Education/Training Program; ADMIT Hospitalist
PROC: 02713EZ Dilation of Coronary Artery, Two Arteries with Two Intraluminal Devices, Percutaneous Approach (ICD-10-PCS; principal; 2019-07-16)
PROC: 02703ZZ Dilation of Coronary Artery, One Artery, Percutaneous Approach (ICD-10-PCS; 2019-07-16)
PROC: 4A023N7 Measurement of Cardiac Sampling and Pressure, Left Heart, Percutaneous Approach (ICD-10-PCS; 2019-07-16)
PROC: B2111ZZ Fluoroscopy of Multiple Coronary Arteries using Low Osmolar Contrast (ICD-10-PCS; 2019-07-16)
DX: I21.4 Non-ST elevation (NSTEMI) myocardial infarction (principal); I50.33 Acute on chronic diastolic (congestive) heart failure; K57.92 Diverticulitis of intestine, part unspecified, without perforation or abscess without bleeding; I20.0 Unstable angina; E11.9 Type 2 diabetes mellitus without complications; F32.9 Major depressive disorder, single episode, unspecified; K04.7 Periapical abscess without sinus; E66.9 Obesity, unspecified; E03.9 Hypothyroidism, unspecified; I08.0 Rheumatic disorders of both mitral and aortic valves; Z79.82 Long term (current) use of aspirin; Z79.4 Long term (current) use of insulin; Z79.2 Long term (current) use of antibiotics; Z88.0 Allergy status to penicillin; Z88.2 Allergy status to sulfonamides; Z88.6 Allergy status to analgesic agent
CPT/HCPCS: 99222-AI; 99233-AI; C1725; C1769; C1876; C1887; J0153; J1644; J1650; J1815; J1940; J2250; J3010; J7030; Q9967

== ENCOUNTER → 2019-12-31 | Outpatient (CLI) | payer SELFPAY ==
[~2019-12-31] VITALS: Ht 165.1 cm; Wt 121.0 kg
[~2019-12-31] MED LIST changes: +LASIX 20MG TABL20 MG PO; +LIPITOR 80MG80 MG PO; +SYNTHROID0.2 MG/TAB PO; +TOPROL XL 25MG25 MG PO; +ZESTRIL 20MG TA20 MG PO
[2019-12-31 10:55] VITALS: BP 172/87; PULSE 85
[2019-12-31 11:56] VITALS: BP 164/68; PULSE 74
[2019-12-31 11:58] VITALS: BP 113/59; PULSE 83
[2019-12-31 11:59] VITALS: BP 128/65; PULSE 82
[2019-12-31 12:00] VITALS: BP 141/69; PULSE 85
[2019-12-31 12:01] VITALS: BP 132/68; PULSE 81
== END ==
LOC: COL.CARD 10:24
DX: I20.9 Angina pectoris, unspecified (principal); R06.09 Other forms of dyspnea
CPT/HCPCS: A9500; J2785

== ENCOUNTER → 2020-03-16 | Outpatient (CLI) | payer SELFPAY | LOC: COL.CARD 02-23 12:00 | DX: I08.3 Combined rheumatic disorders of mitral, aortic and tricuspid valves (principal) ==

== ENCOUNTER 2021-01-29 10:56 | Emergency (ER) | payer SELFPAY ==
[~2021-01-29] VITALS: Ht 165.1 cm; Wt 125.0 kg
[2021-01-29 10:59] VITALS: TEMP 97.8
[2021-01-29 12:05] LABS: BASO # 0.1 (0.0-0.2); BASO % 0.7 % (0.0-2.0); EOS # 0.3 (0.0-0.7); EOS % 3.1 % (0-4.0); GRAN # 6.1 (1.4-6.5); GRAN % 74.4 % (42.2-75.2); HEMATOCRIT 41.6 % (37.0-47.0); LYMPH # 1.1 (1.2-3.4); MEAN CELL VOLUME 89 fl (80.0-100.0); MEAN CORPUSCULAR HEMOGLOBIN 30 pg (27.0-31.0); MEAN CORPUSCULAR HGB CONC 34 g/dl (33.0-37.0); MEAN PLATELET VOLUME 10.1 fl (7.4-10.4); MONO # 0.6 (0.1-0.6); MONO % 7.2 % (1.7-9.3); PLATELET COUNT 317 K/mm3 (130-400); RED BLOOD COUNT 4.67 M/mm3 (4.10-5.30); REDCELL DISTRIBUTION WIDTH-CV 14.1 % (11.5-14.5)
[2021-01-29 12:15] LABS: ALBUMIN 3.7 gm/dL (3.5-5.0); BILIRUBIN,TOTAL 0.2 mg/dL (0.0-1.0); CALCIUM 8.8 mg/dL (8.4-10.2); CREATININE, serum 1.04 (0.52-1.25); POTASSIUM 3.8 mmol/L (3.4-5.0); TOTAL PROTEIN 7.2 gm/dL (6.4-8.2)
[2021-01-29] MEDS ORDERED: ANTIVERT 25MG25 MG PO (15:15)
[2021-01-29 16:10] VITALS: BP 130/61; PULSE 80
== END 2021-01-29 16:15 | disposition home or self-care (01) ==
LOC: COL.ER 10:56
PROVIDERS: Personal Emergency Response Attendant
DX: R42 Dizziness and giddiness (principal); I50.9 Heart failure, unspecified; I25.10 Atherosclerotic heart disease of native coronary artery without angina pectoris; E11.9 Type 2 diabetes mellitus without complications; E03.9 Hypothyroidism, unspecified; E66.9 Obesity, unspecified; Z79.02 Long term (current) use of antithrombotics/antiplatelets; Z79.890 Hormone replacement therapy; Z79.4 Long term (current) use of insulin; Z68.42 Body mass index [BMI] 45.0-49.9, adult
CPT/HCPCS: J2550; J7030

== ENCOUNTER 2021-03-28 10:34 | Emergency (ER) | payer SELFPAY ==
[~2021-03-28] VITALS: Ht 165.1 cm; Wt 131.8 kg
[2021-03-28 10:43] VITALS: BP 180/90; TEMP 98.2
[2021-03-28] MEDS ORDERED: DOXYCYCLINE 10100 MG PO (11:35)
[2021-03-28 11:41] VITALS: PULSE 88
== END 2021-03-28 11:41 | disposition home or self-care (01) ==
LOC: COL.ER 10:34
DX: S61.452A Open bite of left hand, initial encounter (principal); I25.10 Atherosclerotic heart disease of native coronary artery without angina pectoris; I50.9 Heart failure, unspecified; I11.0 Hypertensive heart disease with heart failure; E11.9 Type 2 diabetes mellitus without complications; E03.9 Hypothyroidism, unspecified; Z23 Encounter for immunization; Z79.82 Long term (current) use of aspirin; Z79.4 Long term (current) use of insulin; Z79.890 Hormone replacement therapy; Z79.899 Other long term (current) drug therapy; W54.0XXA Bitten by dog, initial encounter

== ENCOUNTER 2023-06-19 09:01 | Day surgery (SDC) | payer MEDICARE ==
[2023-06-19] VITALS (10 sets, daily range): BP systolic 117–165; BP diastolic 66–91; PULSE 66–79; TEMP 98.1
[~2023-06-19] VITALS: Ht 162.6 cm; Wt 140.5 kg
[~2023-06-19 09:01] MED LIST changes: +DOXYCYCLINE 10100 MG PO; +LASIX 40MG TABL40 MG PO; +SYNTHROID0.1 MG/TAB PO; +TOPROL XL100 MG PO; +ZESTRIL40 MG PO
--- NOTE | 2023-06-19 10:02 | NUR ---
Initial visit; Patient thanked Health Care Specialist for offering encouragement and prayer prior to her surgical procedure this morning. Health Care Specialist offered God's Lisa and a rapid and thorough recovery.
[2023-06-19] MEDS ORDERED: ISTALOL 2.5 ML2.5 ML OD (10:04)
[2023-06-19 10:11] LABS: HEMATOCRIT 38.5 % (37.0-47.0); HEMOGLOBIN 12.7 g/dl (12.5-16.0); MEAN CELL VOLUME 90 fl (80.0-100.0); MEAN CORPUSCULAR HEMOGLOBIN 30 pg (27-31); MEAN CORPUSCULAR HGB CONC 33 g/dl (33.0-37.0); MEAN PLATELET VOLUME 10.3 fl (7.4-10.4); PLATELET COUNT 314 K/mm3 (130-400); RED BLOOD COUNT 4.28 M/mm3 (4.10-5.30); REDCELL DISTRIBUTION WIDTH-CV 13.4 % (11.5-14.5)
[2023-06-19 10:15] LABS: PROTHROMBIN TIME 10.4 SECONDS (9.7-12.8)
[2023-06-19 10:18] LABS: PARTIAL THROMBOPLASTIN TIME 33.6 SECONDS (26.0-37.0)
[2023-06-19] MEDS ORDERED: HUMULIN N PE100 U/ML SQ (10:21)
[2023-06-19 10:22] LABS: CALCIUM 9.6 mg/dL (8.4-10.2); CREATININE, serum 1.65 mg/dL (0.57-1.11); POTASSIUM 4.7 mmol/L (3.5-4.5)
[2023-06-19] MEDS ORDERED: TYLENOL 325MG325 MG PO (10:26)
[2023-06-19] MEDS ORDERED: THE MEDICINE S200 M2 PO (10:27)
[2023-06-19] MEDS ORDERED: MAGNESIUM200 MG PO (10:28)
[2023-06-19] MEDS ORDERED: ZOFRAN ODT8 MG PO (10:29)
[2023-06-19] MEDS ORDERED: L-GLUTAMINE500 M5 PO (10:30)
--- NOTE | 2023-06-19 12:53 | NUR ---
Refer to [facility] report for procedural sedation/notes
--- NOTE | 2023-06-19 13:46 | NUR ---
Pt back to Express Unit room - recieved at bedside by MICHAEL Simmons - vitals initiated and reviewed together - right radial access site / TR-band stable and reviewed with MICHAEL Simmons. VSS - pt AOx4 - pt denies needs at this time - call light in reach
[2023-06-19] MEDS ORDERED: IMDUR 60MG60 MG/TAB PO (15:33)
[2023-06-19] MEDS ORDERED: TOPROL XL 25MG25 MG PO (15:33)
--- NOTE | 2023-06-19 16:58 | NUR ---
Pt was brought up to 12 by wheelchair, scheduled for a Heart Cath. IV started to the L hand 22g. Labs drawn. EKG done. Meds and HX reviewed with the pt. Consent for the heart cath signed. Pt was taken to the calibration laboratory technician for the procedure. Post procedure the pt came back to [facility]. Right radial wrist site assessed at time of arrival. Site clean, dry, and intact. Pt was offered someting to eat and drink. Accepted a tea and water, the pts friend brought them something to eat. Pt was bedrest for 2 hrs. At the start of hr 3 air was taken out of the radial band 2-3mls of air about every 15 mins. The wrist site was assessed after each air release. No bleeding assessed. Once all the air was released a band-aid was placed on the wrist site and the deflated band was placed as a reminder to limit extermity use. Pt was given discharge education and information. IV was dc'd and wrapped in coban. Pt exited the unit by wheelchair to friends car.
== END 2023-06-19 16:43 | disposition home or self-care (01) ==
LOC: COL.CAR 09:01
PROVIDERS: Internal Medicine Cardiovascular Disease
DX: I25.10 Atherosclerotic heart disease of native coronary artery without angina pectoris (principal)
CPT/HCPCS: J1644; J2250; J3010; Q9967